=== PATIENT | male | born 1985 | race Caucasian/White ===

== ENCOUNTER 2019-05-20 10:43 | Emergency (ER) | payer OTHER, SELFPAY ==
[2019-05-20 10:51] VITALS: BP 132/77; PULSE 75; RESP 18; TEMP 36.4; O2SAT 98
--- NOTE | 2019-05-20 10:56 | ED.GENADULT ---
HPI - General Adult General Chief complaint: Upper Respiratory Infection Stated complaint: Sore Throat Time Seen by Provider: 05/20/19 10:56 Source: patient and RN notes reviewed Mode of arrival: ambulatory Limitations: no limitations History of Present Illness HPI narrative: This is a 33 years old male presented office for evaluation of possible strep. Symptoms include cough and congestion. Denies fever. Denies sick contact. He took Mucinex and tylenol last night for his symptoms. Related Data Home Medications Medication Instructions Recorded Confirmed No Home Medications 05/20/19 05/20/19 Allergies Allergy/AdvReac Type Severity Reaction Status Date / Time No Known Allergies Allergy Verified 05/20/19 10:54 Review of Systems Review of Systems: Narrative: CONSTITUTIONAL: Denies fever, chills, sweats. EYES: Denies visual changes, redness, discharge. ENT: Denies rhinorrhea, congestion, otalgia. CARDIOVASCULAR: Denies chest pain, palpitation, edema. RESPIRATORY: Denies dyspnea, wheezing GASTROINTESTINAL: Denies abdominal pain, nausea, vomiting, diarrhea. SKIN: Denies rash MUSCULOSKELETAL: Denies acute back pain NEUROLOGIC: Denies lightheaded PMFSH Social History Social History (Updated 05/20/19 @ 10:58 by REFUGIO Quach) Smoking status: Never smoker Comments At time of signature, I agree with nursing past medical, surgical, social and family history. There is no relevant family history pertinent to the presenting complaint. Exam Narrative: Exam Narrative: GENERAL: This is a well-nourished, well-developed patient, in no apparent distress. EARS: External ears normal, auditory canals clear and without drainage, TMs normal without perforation. Hearing grossly intact. NOSE: External nose normal with no obvious nasal discharge, nares without redness, no rhinorrhea. THROAT: Mucous membranes moist, posterior pharynx clear. NECK: Neck supple, non-tender without lymphadenopathy, masses or thyromegaly. CARDIOVASCULAR: Regular rate and rhythm without murmurs, gallops, or rubs. RESPIRATORY: Clear to auscultation. Breath sounds equal bilaterally. No wheezes, rales, or rhonchi. GASTROINTESTINAL: Abdomen soft, non-tender, nondistended. Bowel sounds are active. No hepato-splenomegaly, or palpable masses. No guarding. NEURO: awake, alert, and oriented to person, place and time. There were no obvious focal neurologic abnormalities. Steady gait Hoffman Coma Scale Eye Opening: Spontaneous 4 Gm Coma Scale Motor: Obeys Commands 6 Gm Coma Scale Verbal: Oriented 5 Course Vital Signs Vital signs: Vital Signs Temperature 97.5 F L 05/20/19 10:51 Pulse Rate 75 05/20/19 10:51 Respiratory Rate 18 05/20/19 10:51 Blood Pressure 132/77 05/20/19 10:51 Pulse Oximetry 98 05/20/19 10:51 Temperature 97.5 F L 05/20/19 10:51 Pulse Rate 75 05/20/19 10:51 Respiratory Rate 18 05/20/19 10:51 Blood Pressure 132/77 05/20/19 10:51 Pulse Oximetry 98 05/20/19 10:51 Medical Decision Making MDM Narrative Medical decision making narrative: Discharge instructions reviewed with patient, as well as provided in writing per nursing staff. The instructions also include specific and strict return/GO TO THE ER as well as f/u information. All questions have been answered, and the patient deny any further questions with discharge and discharge plan. Differential Diagnosis Differential Diagnosis: pneumonia, Allergic Rhinitis, Upper respiratory cough syndrome, Pharyngitis, Sinusitis, Bronchitis, otitis media, viral URI, Asthma/reactive airway disease, influenza Vital Signs Vital Signs: Vital Signs Temperature 97.5 F L 05/20/19 10:51 Pulse Rate 75 05/20/19 10:51 Respiratory Rate 18 05/20/19 10:51 Blood Pressure 132/77 05/20/19 10:51 Pulse Oximetry 98 05/20/19 10:51 Temperature 97.5 F L 05/20/19 10:51 Pulse Rate 75 05/20/19 10:51 Respiratory Rate 18 05/20/19 10:51 Blood
== END 2019-05-20 11:15 | disposition home or self-care (01) ==
PROVIDERS: Emergency Provider Nurse Practitioner
DX: J02.9 Acute pharyngitis, unspecified (principal)
CPT/HCPCS: 87081; 87880; 99213; G0463